=== PATIENT | female | born 1985 | race Caucasian/White ===

== ENCOUNTER 2016-04-22 16:34 | Emergency (ER) ==
[2016-04-22 16:53] VITALS: BP 118/069
[2016-04-22] MEDS ORDERED: TORADOL IM ONE (17:39)
[2016-04-22] MEDS ORDERED: ZOFRAN ODT PO ONE (17:39)
[2016-04-22 17:46] LABS: URINE CULTURE PL NEEDED? NO; URINE SOURCE CLEAN CATCH
--- NOTE | 2016-04-22 17:48 | PROVIDER DOCUMENTATION ---
HPI-General Adult - General Chief Complaint: Flu Symptoms Stated Complaint: UTI SX,FLU SX Time Seen by Provider: 04/22/16 17:17 Source: patient Allergies/Adverse Reactions: Patient Allergies Allergy/AdvReac Type Severity Reaction Status Date / Time amoxicillin trihydrate * Allergy Mild RASH Verified 02/09/16 08:53 [From Augmentin] ciprofloxacin [From Cipro] Allergy Mild RASH Verified 02/09/16 08:53 ciprofloxacin HCl * Allergy Mild RASH Verified 02/09/16 08:53 [From Cipro] doxycycline Allergy Mild RASH Verified 02/09/16 08:53 nitrofurantoin Allergy Mild NAUSEA/VOMI Verified 02/09/16 08:53 [From Macrobid] TING nitrofurantoin Allergy Mild NAUSEA/VOMI Verified 02/09/16 08:53 macrocrystalline * TING [From Macrobid] omeprazole [From Prilosec] Allergy Mild ITCHING Verified 02/09/16 08:53 omeprazole magnesium * Allergy Mild ITCHING Verified 02/09/16 08:53 [From Prilosec] potassium clavulanate * Allergy Mild RASH Verified 02/09/16 08:53 [From Augmentin] Sulfa (Sulfonamide Allergy Mild RASH Verified 02/09/16 08:53 Antibiotics) [Sulfa(Sulfonamide Antibiotics)] sulfamethoxazole Allergy Mild HIVES Verified 02/09/16 08:53 [From Bactrim] trimethoprim [From Bactrim] Allergy Mild HIVES Verified 02/09/16 08:53 acetaminophen [From Wygesic] Allergy RASH Verified 02/09/16 08:53 propoxyphene HCl * Allergy RASH Verified 02/09/16 08:53 [From Wygesic] Home Medications: Home Medication List Medication Instructions Recorded Confirmed Last Taken Type Cephalexin [Keflex] 500 mg PO BID #20 capsule 04/22/16 Unknown Rx Metoclopramide [Reglan] 10 mg PO Q6HR PRN #30 tablet 04/22/16 Unknown Rx Oseltamivir [Tamiflu] 75 mg PO DAILY #10 capsule 04/22/16 Unknown Rx Phenazopyridine HCl [Pyridium] 200 mg PO TID PRN PRN #9 tablet 04/22/16 Unknown Rx - History of Present Illness -Gen Adult Nature of Presenting Problems: 31 yo female presents to ER with c/o headache, body aches, nausea, and dysurua since Monday. She states that her daughter was diagnosed with the flu Monday and the global project manager was supposed to call tamiflu into pharmacy for family as a prophylaxis but did not. Location of Pain/Injury: reports: head, generalized Pain Radiation: reports: no radiation Quality of Pain: reports: aching, pressure, throbbing Severity: reports: moderate Onset/Duration: reports: 3 days ago Timing: reports: still present, getting worse Context/Activities at Onset: reports: none Modifying Factors: improves with: nothing Associated Symptoms: reports: fatigue, genitourinary problems, headaches, malaise, muscle aches, nausea Similar Symptoms Previously?: No Recently seen or treated by another doctor?: No Review of Systems - Adult - REVIEW OF SYSTEMS - ADULT Constitutional: reports: see HPI, fatique Eyes: reports: no symptoms reported Ears, Nose, Mouth & Throat: reports: no symptoms reported Cardiovascular: reports: no symptoms reported Respiratory: reports: no symptoms reported Gastrointestinal: reports: see HPI, nausea Genitourinary: reports: see HPI, dysuria Musculoskeletal: reports: no symptoms reported Integumentary: reports: no symptoms reported Neurological: reports: see HPI, headache/migraines Psychiatric: reports: no symptoms reported Endocrine: reports: no symptoms reported Hematologic/Lymphatic: reports: no symptoms reported Allergic/Immunologic: reports: no symptoms reported All Other Systems: Reviewed and Negative Past History - Adult - PAST MEDICAL HISTORY-ADULT Review of Records: reports: Old Records Reviewed, Nursing Assessment Review, Medications Reviewed, Social history reviewed & non-contributory. Major Childhood Illnesses: reports: denies history Cardiovascular: reports: denies history Respiratory: reports: denies history Gastrointestinal: reports: GERD Obstetrical/Gynecological: reports: denies history Genitourinary: reports: chronic UTI's Musculoskeletal: reports: denies history Neurological: reports: denies history Endocrine/Immune: reports: anemia, Sickle Cell disease (trait) Other Conditions: reports: denies history - PRIOR SURGERIES/PROCEDURES Surgical/Procedure History: reports: hysterectomy, BTL, other (urethral dilitation) - PRIOR HOSPITALIZATIONS Prior Hospitalizations: reports: none - IMMUNIZATION STATUS Childhood Immunizations: See Nurse Assessment Flu Vaccine: See Nurse Assessment - FAMILY HISTORY Family History: reviewed, not pertinent - SOCIAL HISTORY Smoking: denies, non-smoker Substance Use: denies Alcohol Use Frequency: occasionally Living Situation: family Physical Exam-General - PHYSICAL EXAM-ADULT Initial Vital Signs Reviewed: Yes - CONSTITUTIONAL General Appearance: appears well, alert, no apparent distress - EYES Eyes: PERRL/EOMI - HEAD, EARS, NOSE, MOUTH & THROAT HENMT: normocephalic/atraumatic, normal ENT inspection - NECK Neck: supple - RESPIRATORY Respiratory: lungs clear, normal breath sounds, no respiratory distress - CARDIOVASCULAR Cardiovascular: normal peripheral pulses - GASTROINTESTINAL (ABDOMEN) Abdominal Exam: normal bowel sounds, soft, tenderness (suprapubic area) - MUSCULOSKELETAL Back Exam: normal inspection, no CVA tenderness, no vertebral tenderness Extremity: non-tender, normal gait, normal inspection, no pedal edema - SKIN Integumentary: normal color, normal turgor, warm/dry - NEUROLOGIC Neurologic: grossly normal - PSYCHIATRIC Psych/Mental Status: normal mood/affect, normal thought content, normal thought process, oriented x 3 Progress - PLAN OF CARE/RESULTS Progress/Plan/Lab Results: 1840-Discussed results/dx/tx/discharge and follow up instructions with patient; she verbalized understanding. Laboratory Tests 04/22/16 04/22/16 04/22/16 16:50 16:50 17:30 Urine Source CLEAN CATCH Urine Color YELLOW Urine Clarity CLEAR Urine pH 7.0 Ur Specific [place] 1.010 Urine Protein NEGATIVE Urine Ketones NEGATIVE Urine Blood NEGATIVE Urine Nitrite NEGATIVE Urine Bilirubin NEGATIVE Urine Urobilinogen NORMAL Urine Microscopic RBC <10 Urine WBC NEGATIVE Ur Epithelial Cells <10 Urine Bacteria 1+ Urine Glucose NEGATIVE Urine Test NEGATIVE Influenza A (Rapid) NEGATIVE Influenza B (Rapid) NEGATIVE Orders Category Date Time Status INFLUENZA SCREEN PL Stat Lab 04/22/16 17:30 Completed TEST-URINE [PREG] Stat Lab 04/22/16 16:[address] W/POSS RFLX CULT [URINALYSIS] Stat Lab 04/22/16 16:50 Completed Ketorolac [Toradol] Med 04/22/16 17:39 Discontinued 60 mg IM NOW ONE Ondansetron Odt [Zofran Odt] Med 04/22/16 17:39 Discontinued 4 mg PO NOW ONE Vital Signs - 24 hr 04/22/16 04/22/16 16:50 19:05 Temperature 98.7 F 98.7 F Pulse Rate 98 H 91 H Respiratory 19 18 Rate Blood Pressure 118/069 O2 Sat by Pulse 99 Oximetry Departure - Departure Time of Disposition Order: 18:43 DIAGNOSIS: Exposure to the flu, Bladder spasms, Muscle ache Nausea & vomiting Qualifiers: Vomiting type: unspecified Vomiting Intractability: non-intractable Qualified Code(s): R11.2 - Nausea with vomiting, unspecified Disposition: HOME 01 Certified Medical Emergency: Emergent Condition: Good Additional Instructions: Follow up with primary care doctor. Take medications as prescribed. Alternate tylenol with motrin as needed for body aches. May use Emetrol over the counter for nausea and vomiting. ED Follow Up Instructions: You have been treated by a care provider in the Emergency Department. These instructions are being provided to you so you can have an understanding of how to care for yourself upon discharge. Upon discharge from the Emergency Department, you are responsible for making arrangements for follow-up care by a physician of your choice. Take all prescribed medications as directed. Return to the Emergency Department immediately for any new or worsening symptoms. You may call the Physician Referral phone number at [phone] to obtain a list of Physicians who are taking new patients. Prescriptions: Cephalexin [Keflex] 500 mg PO BID #20 capsule Phenazopyridine HCl [Pyridium] 200 mg PO TID PRN PRN #9 tablet PRN Reason: Pain Metoclopramide [Reglan] 10 mg PO Q6HR PRN #30 tablet PRN Reason: Nausea Oseltamivir [Tamiflu] 75 mg PO DAILY #10 capsule Referrals: Randall Freitas MD [STAFF PHYSICIAN] - None,PCP [Primary Care Provider] - Forms: Return to School/Parent Work Instructions: Muscle Cramps and Spasms, [id number], Metoclopramide tablets, Phenazopyridine tablets, Oseltamivir capsules, Nausea and Vomiting, Cephalexin tablets or capsules Attestation - Physician/ [facility] Attestation Patient care was provided by Advanced Practice Provider:: Yes Advanced Practice Provider:: Kassandra Guallpa Advanced Practice Provider documentation review:: The Mid-level provider documentation, treatment plan and medical decision making was reviewed by the physician who agrees with all treatment and medical decision making by the [facility].
[2016-04-22 18:20] LABS: BILIRUBIN URINE NEGATIVE (NEGATIVE); BLOOD URINE NEGATIVE (NEGATIVE); CLARITY CLEAR (CLEAR); COLOR YELLOW; GLUCOSE URINE NEGATIVE (NEGATIVE); LEUKOCYTES URINE NEGATIVE (NEGATIVE); NITRITE URINE NEGATIVE (NEGATIVE); PROTEIN URINE NEGATIVE (NEGATIVE); URINE EPITHELIAL CELLS <10 /HPF (<10); URINE RBC <10 /HPF (<10); UROBILINOGEN URINE NORMAL
== END 2016-04-22 19:05 | disposition home or self-care (01) ==
LOC: P.ED 16:34
DX: Z20.828 Contact with and (suspected) exposure to other viral communicable diseases (principal); N32.89 Other specified disorders of bladder; M79.1 Myalgia; R11.2 Nausea with vomiting, unspecified; R51 Headache; R30.0 Dysuria; R53.83 Other fatigue; R53.81 Other malaise; K21.9 Gastro-esophageal reflux disease without esophagitis; Z87.440 Personal history of urinary (tract) infections; D57.3 Sickle-cell trait; R10.30 Lower abdominal pain, unspecified
CPT/HCPCS: 81001; 81025; 87804; 96372; J1885